=== PATIENT | male | born 1985 | race Caucasian/White ===

== ENCOUNTER 2022-07-23 06:38 | Emergency (ER) | payer BC ==
[2022-07-23] MEDS ORDERED: HYDROmorphone 1 MG/ML Syringe IM ONE (07:18)
[2022-07-23] MEDS ORDERED: Naproxen 500 MG Tab PO STA (07:19)
[2022-07-23] MEDS ORDERED: Orphenadrine 100 MG Tab.ER PO STA (07:19)
[2022-07-23] MEDS ORDERED: LORazepam 2 MG/ML SDV IM ONE (08:57)
[2022-07-23] MEDS ORDERED: Cyclobenzaprine 10 MG Tab PO ONE (08:57)
== END 2022-07-23 13:05 | disposition home or self-care (01) ==
LOC: JD.ED 06:38
DX: S39.012A Strain of muscle, fascia and tendon of lower back, initial encounter (principal); F17.210 Nicotine dependence, cigarettes, uncomplicated; X50.9XXA Other and unspecified overexertion or strenuous movements or postures, initial encounter
CPT/HCPCS: 96372; 99283; A9270; J1170; J2060